=== PATIENT | female | born 2000 | race Hispanic/Latino ===

== ENCOUNTER 2021-03-21 07:49 | Day surgery (SDC) | payer OTHER ==
[2021-03-20 09:17] VITALS: BP 146/80
[2021-03-21] VITALS (16 sets, daily range): BP systolic 118–138; BP diastolic 64–83
[~2021-03-21] VITALS: Ht 165.1 cm; Wt 148.1 kg
[~2021-03-21 07:49] MED LIST: BIOTIN PO; METF-444 PO; VITAMIN D3 PO
[2021-03-21] MEDS ORDERED: 0.9%NACL 1000ML 1,000 ML IV SCH (08:00)
[2021-03-21 08:32] LABS: CREATININE 0.8 mg/dL (0.5-1.5); POTASSIUM 3.9 mmol/L (3.5-5.1)
[2021-03-21] MEDS ORDERED: PROPOFOL 10 MG/ML 20ML VIAL IV ONE (10:56)
[2021-03-21] MEDS ORDERED: SUCCINYLCHOLINE CHLORIDE 20 MG/ML 10 ML VIAL ONE (10:56)
[2021-03-21] MEDS ORDERED: MIDAZOLAM HCL 1 MG/ML 2ML VIAL ONE (10:56)
[2021-03-21] MEDS ORDERED: ONDANSETRON 4MG INJ ONE (10:56)
[2021-03-21] MEDS ORDERED: FENTANYL CITRATE PF 50 MCG/1 ML 2ML VIAL ONE ×3 (10:56→12:33)
[2021-03-21] MEDS ORDERED: LIDOCAINE PF 100MG/5ML (2%) SYRINGE 5ML ONE (10:56)
[2021-03-21] MEDS ORDERED: CEFAZOLIN SODIUM 1 GM VIAL ONE (11:23)
[2021-03-21] MEDS ORDERED: ROCURONIUM 10MG/1ML SYR 10 MG/ML ML ONE (11:33)
[2021-03-21] MEDS ORDERED: BUPIVACAINE/PF 0.25% 30ML VIAL IJ ONE (12:21)
== END 2021-03-21 14:15 | disposition home or self-care (01) ==
LOC: DAH 07:49
PROVIDERS: ATTEND Surgery
DX: L73.2 Hidradenitis suppurativa (principal); Z20.822 Contact with and (suspected) exposure to COVID-19; L72.0 Epidermal cyst; E66.01 Morbid (severe) obesity due to excess calories; G43.909 Migraine, unspecified, not intractable, without status migrainosus; F32.9 Major depressive disorder, single episode, unspecified; Z87.891 Personal history of nicotine dependence; Z79.4 Long term (current) use of insulin; Z90.89 Acquired absence of other organs; Z98.890 Other specified postprocedural states; Z68.43 Body mass index [BMI] 50.0-59.9, adult; Z79.01 Long term (current) use of anticoagulants
CPT/HCPCS: 11450; 36415 ×2; 80048; 82948 ×2; 84703; 85730; 87635; A4215; A4221; A4222; A4223; A4452; A4600; A4606; A4663; A6260; C9803; J0330; J0690; J2001; J2250; J2405; J2704; J3010 ×3; J3490; J7030